=== PATIENT | male | born 1945 | race Caucasian/White ===

== ENCOUNTER 2017-04-28 13:01 | Emergency (ER) | payer MEDICARE ==
[~2017-04-28] VITALS: Ht 177.8 cm; Wt 85.0 kg
[2017-04-28] MEDS ORDERED: PLAVIX75 MG PO (13:49)
[2017-04-28] MEDS ORDERED: ASPIRINCHW 81MG PO (13:49)
[2017-04-28] MEDS ORDERED: NEURONTIN300 MG PO (13:50)
[2017-04-28] MEDS ORDERED: MIRALAX3350 NF PO ×2 (13:50→13:53)
[2017-04-28] MEDS ORDERED: RANITIDINE150 M1 PO (13:50)
[2017-04-28] MEDS ORDERED: TAMSULOSIN0.4 MG PO (13:51)
[2017-04-28] MEDS ORDERED: CRESTOR20 MG PO (13:51)
[2017-04-28] MEDS ORDERED: METOPROL TAR25 MG PO (13:52)
[2017-04-28] MEDS ORDERED: LEXAPRO10 MG PO (13:53)
[2017-04-28] MEDS ORDERED: INTEGRA PO (13:53)
[2017-04-28] MEDS ORDERED: SENNA8.6 MG PO (13:54)
[2017-04-28] MEDS ORDERED: INSPRA25 MG PO (13:54)
[2017-04-28] MEDS ORDERED: PROBIOTI3 (13:54)
[2017-04-28] MEDS ORDERED: ZYRTEC10 MG PO (13:55)
[2017-04-28] MEDS ORDERED: COLCHICINE0.6 M2 (13:55)
[2017-04-28] MEDS ORDERED: ATIVAN1 M1 PO (13:56)
[2017-04-28] MEDS ORDERED: NITROGLYCER0.4 MG/HR TD (13:56)
[2017-04-28 14:08] LABS: HEMATOCRIT 34.2 % (39.0-50.0); HEMOGLOBIN 11.3 g/dl (14.0-18.0); IMMATURE GRANULOCYTES 0.3 % (0.0-1.0); MEAN CELL VOLUME 98.8 fL CALC (80.0-100.0); MEAN CORPUSCULAR HGB 32.7 pG CALC (26.0-32.0); NEUT# 2.8 thou/uL (1.82-7.42); RED BLOOD COUNT 3.46 mill/uL (4.70-6.10); RED CELL DISTRI WIDTH 12.8 % (11.5-15.5)
[2017-04-28 14:51] LABS: ALBUMIN 3.9 g/dL (3.2-5.0); ALKALINE PHOSPHATASE 44 u/l (38-126); ANION GAP 16 (6-22 (CALC)); BILIRUBIN, TOTAL 0.7 mg/dL (0.0-1.4); BUN 25 mg/dL (8-23); BUN/CREATININE RATIO 12 (12-20 (CALC)); CALCIUM 9.7 mg/dL (8.4-10.2); CARBON DIOXIDE 27 mmol/l (22-30); CHLORIDE 103 mmol/l (95-108); GFR 33 ML/MIN (>=60 (CALC)); GFR FOR AFR.AMER. 40 ML/MIN (>=60 (CALC)); GLUCOSE 102 mg/dL (82-115); LIPASE 59 u/l (23-300); POTASSIUM 4.3 mmol/l (3.5-5.1); SGOT/AST 37 u/l (19-48); SGPT/ALT 30 u/l (11-66); SODIUM 142 mmol/l (137-146); TOTAL PROTEIN 6.3 g/dL (6.3-8.2)
[2017-04-28 15:06] LABS: URINE BILIRUBIN - DIPSTICK NEGATIVE (NEGATIVE); URINE BLOOD DIPSTICK NEGATIVE (NEGATIVE); URINE COLOR YELLOW; URINE GLUCOSE - DIPSTICK NEGATIVE (NEGATIVE); URINE KETONE NEGATIVE (NEGATIVE); URINE NITRITE - DIPSTICK NEGATIVE (Negative); URINE PROTEIN - DIPSTICK NEGATIVE (NEG-TRACE); URINE SPECIFIC GRAVITY 1.015; URINE UROBILINOGEN - DIPSTICK 0.2 E.U./dL (0.2)
[2017-04-28 15:16] LABS: URINE CLARITY CLOUDY; URINE LEUK ESTERASE MODERATE (NEGATIVE)
[2017-04-28 15:31] LABS: URINE BACTERIA RARE hpf; URINE SQUAMOUS EPITHELIAL CELL FEW EPI/hpf (0-FEW); URINE WBC 20-50 WBC/hpf (0-5)
[2017-04-28 15:50] VITALS: BP 102/59
== END 2017-04-28 15:50 | disposition home or self-care (01) ==
LOC: ED 13:01
PROVIDERS: Emergency Medicine
DX: K59.00 Constipation, unspecified (principal); R10.13 Epigastric pain; I10 Essential (primary) hypertension; R11.0 Nausea

== ENCOUNTER 2021-06-15 15:49 | Observation (INO) | payer MEDICARE ==
[~2021-06-15] VITALS: Ht 177.8 cm; Wt 90.0 kg
[~2021-06-15 15:49] MED LIST: ASPIRINCHW 81MG PO; ATIVAN1 M1 PO; COLCHICINE0.6 M2; CRESTOR20 MG PO; INSPRA25 MG PO; INTEGRA PO; LEXAPRO10 MG PO; METOPROLOL100 M1 PO; MIRALAX3350 NF PO; NEURONTIN300 MG PO; NITROGLYCER0.4 MG/HR TD; PLAVIX75 MG PO; PROBIOTI3; RANITIDINE150 M1 PO; RANOLAZINE ER1000 MG PO; SENNA8.6 MG PO; TAMSULOSIN0.4 MG PO; ZYRTEC10 MG PO
--- NOTE | 2021-06-15 15:50 | NUR ---
PT TO ED ROOM 8 VIA WHEELCHAIR FOR TRIAGE.
--- NOTE | 2021-06-15 16:13 | NUR ---
STROKE ALERT CALLED, PT TO CT VIA STRETCHER.
--- NOTE | 2021-06-15 16:17 | NUR ---
PT ARRIVES IN CT, SPEAKING WITH ASHLEY SHEPHERD VIA VIDEO. PT ALERT AND ABLE TO FOLLOW COMMANDS. PT REMAINS JUMPY WITH ANY STIMULI.
--- NOTE | 2021-06-15 16:22 | NUR ---
CT OF THE HEAD PERFORMED, NO CTA INDICATED. PT TAKEN BACK TO ED VIA STRETCHER IN STABLE CONDITION.
[2021-06-15 16:26] LABS: HEMOGLOBIN 13.1 g/dl (14.0-18.0); IMMATURE GRANULOCYTES 0.2 % (0.0-5.0); MEAN CELL VOLUME 98.3 fL CALC (80.0-100.0); MEAN CORPUSCULAR HGB 32.2 pG CALC (26.0-32.0); MEAN CORPUSCULAR HGB CONC 32.8 g/dL CAL (32.0-36.0); NEUT# 3.92 thou/uL (1.82-7.42); RED BLOOD COUNT 4.07 mill/uL (4.70-6.10); RED CELL DISTRI WIDTH 13.3 % (11.5-15.5)
--- NOTE | 2021-06-15 16:30 | NUR ---
PT BACK FROM RADIOLOGY IN STABLE CONDITION. PT MORE ALERT AND TALKATIVE AT THIS TIME. PTS [id number] PRESENT. WILL CONTINUE TO MONITOR.
[2021-06-15 16:37] LABS: ALBUMIN 3.6 g/dL (3.2-5.0); ALKALINE PHOSPHATASE 44 u/l (38-126); ANION GAP 13 (6-22 (CALC)); BILIRUBIN, TOTAL 0.7 mg/dL (0.0-1.4); BUN 23 mg/dL (8-23); BUN/CREATININE RATIO 13 (12-20 (CALC)); CARBON DIOXIDE 23 mmol/l (22-30); CHLORIDE 104 mmol/l (95-108); CREATININE 1.8 mg/dL (0.7-1.3); GFR 37 ML/MIN (>=60 (CALC)); GFR FOR AFR.AMER. 45 ML/MIN (>=60 (CALC)); POTASSIUM 4.2 mmol/l (3.5-5.1); SGOT/AST 27 u/l (19-48); SODIUM 135 mmol/l (137-146); TOTAL PROTEIN 6.3 g/dL (6.3-8.2)
--- NOTE | 2021-06-15 17:00 | NUR ---
SISTER IN LAW STATES [place] IN [place] FEW [place] TO LIVE WITH HER AND WANT AD RECEIVER BROTHER. WAS STARTED ON [place] ON 06/11/21, NOTED PT HAS TWO BOTTLES OF THIS MEDICINE FILLED AT TWO DIFFERENT PHARMACIES ON THE SAME DAY. FAMILY UNSURE IF PT IS TAKING BOTH. FAMILY ALSO STATES PT WAS A DIALYSIS PT AT ONE POINT AFTER HIS MX HEART SURGERIES
--- NOTE | 2021-06-15 17:07 | NUR ---
PT HYPOTENSIVE, FAMILY AT THE BEDSIDE, DR GUZMAN NOTIFIED. PT REMAINS STABLE.
[2021-06-15 17:35] LABS: PROTHROMBIN TIME 10.3 SECONDS (9.0-12.5)
--- NOTE | 2021-06-15 18:10 | NUR ---
PT'S BP IMPROVED, PT TALKATIVE, MAKING SENSE, STATES HE TOOK "TWO" NITRO BEFORE COMING TO HOSPITAL. PT'S SMILE NOTED TO BE SYMETRICAL. PT EXPRESSES THANKS FOR CARE GIVEN. PT STABLE WITH FAMILY AT THE BEDSIDE.
--- NOTE | 2021-06-15 19:10 | NUR ---
PT AND FAMILY AWARE OF PLAN FOR PT TO BE ADMITTED TO MED/SURG ROOM 278. PT STABLE AT THIS TIME.
[2021-06-15 19:34] LABS: C-REACTIVE PROTEIN < 0.5 mg/dL (0-0.9); MAGNESIUM 2.1 mg/dL (1.6-2.3)
[2021-06-15] MEDS ORDERED: FAMOTIDINE20 M1 PO (19:40)
[2021-06-15] MEDS ORDERED: PROTONIX40 M2 PO (19:41)
[2021-06-15] MEDS ORDERED: LAMOTRIGINE25 M1 PO (19:42)
[2021-06-15] MEDS ORDERED: MEMANTINE HYDROC5 MG PO (19:42)
[2021-06-15] MEDS ORDERED: TAMSULOSIN HCL0.4 MG PO (19:43)
[2021-06-15] MEDS ORDERED: AMOXICILLIN500 MG PO (19:44)
[2021-06-15] MEDS ORDERED: EZETIMIBE10 MG PO (19:45)
[2021-06-15] MEDS ORDERED: PERCOCET 5/321 COMBO PO (19:46)
--- NOTE | 2021-06-15 20:05 | NUR ---
CALL PLACED TO MED/SURG TO GIVE SBAR-NO ANSWER
--- NOTE | 2021-06-15 21:18 | NUR ---
SBAR REPORT GIVEN TO [facility] MED/SURG
--- NOTE | 2021-06-15 21:25 | NUR ---
PT TAKEN BY WHEELCHAIR TO MED/SURG IN STABLE CONDITION. PT WITH TELE IN PLACE. BELONGINGS AND PAPERWORK HANDED OFF TO STAFF.
[2021-06-15 21:34] VITALS: BP 126/61
--- NOTE | 2021-06-15 21:34 | NUR ---
PATIENT ADMITTED TO [facility] TO ROOM 278 VIA WC. ALERT WITH CONFUSION. PLEASANT. ABLE TO MAKE NEEDS KNOWN. ASSESSMENT COMPLETE. DENIES ANY PAIN. NO SIGNS OF DISTRESS. PATIENT DID VOICE BEING FORGETFUL. PATIENT ORIENTED TO ROOM, CALL LIGHT AND SURROUNDINGS. INSTRUCTED PATIENT TO UTILIZE CALL LIGHT TO ASK FOR ASSISTANCE. FRESH WATER AT BEDSIDE. BED IN LOW POSITION. CALL LIGHT AND BELONGINGS IN PATIENT REACH.
[2021-06-16] VITALS: BP 91/57
--- NOTE | 2021-06-16 00:30 | NUR ---
PATIENT RESTING IN BED. NO COMPLAINTS VOICED AT THIS TIME. CALL LIGHT AND BELONGINGS REMAIN IN REACH.
--- NOTE | 2021-06-16 03:40 | NUR ---
LAYING IN BED ON HIS LEFT SIDE. NO COMPLAINTS OF PAIN OR DISCOMFORT VOICED. SCARES EASILY WHEN SOMEONE ENTERS ROOM EVEN WHEN KNOCKING FIRST. PATIENT PLEASANT. CALL LIGHT AND BELONGINGS REMAIN IN REACH.
[2021-06-16 04:00] VITALS: BP 111/55
[2021-06-16 06:01] LABS: HEMATOCRIT 38.2 % (39.0-50.0); HEMOGLOBIN 12.5 g/dl (14.0-18.0); MEAN CELL VOLUME 98.7 fL CALC (80.0-100.0); MEAN CORPUSCULAR HGB 32.3 pG CALC (26.0-32.0); MEAN CORPUSCULAR HGB CONC 32.7 g/dL CAL (32.0-36.0); RED BLOOD COUNT 3.87 mill/uL (4.70-6.10); RED CELL DISTRI WIDTH 13.4 % (11.5-15.5)
[2021-06-16 06:21] LABS: CREATININE 1.7 mg/dL (0.7-1.3); MAGNESIUM 2.1 mg/dL (1.6-2.3)
[2021-06-16 06:24] LABS: POTASSIUM 4.2 mmol/l (3.5-5.1)
[2021-06-16 07:20] VITALS: BP 132/66
--- NOTE | 2021-06-16 07:20 | NUR ---
PT SITTING ON THE BED. A&O X3. SOMEWHAT FORGETFUL. PT DENIES ANY PAIN. CLEAR BREATH SOUNDS UPON AUSCULTATION. ACTIVE BOWEL SOUNDS X4 QUADRANTS. IV HEALTHY AND PATENT. FILENET ADMIN IN PLACE. NO OTHER NEEDS AT THIS TIME. CALL LIGHT WITHIN REACH.
--- NOTE | 2021-06-16 09:28 | NUR ---
PER [place] IN [place], PT ALLOWED TO HAVE BREAKFAST IF PERMITTED; NUCLEAR MED DOSE NOT AVAILABLE AT THIS TIME; PT TO HAVE SCAN COMPLETED AT OR AFTER 2PM. PT REQUIRED TO BE NPO 4-6 HOURS PRIOR TO SCAN; NO PAIN MEDICATION ALSO FOR 4-6 HOURS PRIOR TO SCAN.
[2021-06-16 10:45] VITALS: BP 122/64
--- NOTE | 2021-06-16 10:56 | NUR ---
PHYSICIAN AT BEDSIDE.
[2021-06-16] MEDS ORDERED: EXELON4.6 MG/24 PC (11:46)
[2021-06-16] MEDS ORDERED: HYDROXYZINE HYD25 MG PO (11:48)
[2021-06-16] MEDS ORDERED: TADALAFIL2.5 MG PO (11:48)
[2021-06-16] MEDS ORDERED: METOPROLOL100 M1 PO (11:49)
[2021-06-16] MEDS ORDERED: RANOLAZINE ER500 MG PO (11:49)
--- NOTE | 2021-06-16 11:57 | NUR ---
The orders for assessment were received by this BUSINESS PROCESS COORDINATOR today. The case was discussed with the attending nurse who reports no overt deficits for the patient for speech or swallow function. Medical record was checked which reports: chest pain, AKD, generalized weakness, CXR 06-15-21 per MD reports lungs clear, HX CABG, right HIP ORIF, CKD, HTN, BPH, CAD, hyperlipidemia, chronic pain, GERD, IBS. CT brain 06-15-21 per MD reports of no acute intracranial abnormality and marked cerebral atrophy. Patient seen 1105 am to 1125 am. He was cleared for visit by attending nurse at onset and result d/w her as well. The patient was alert in the bed and verbal throughout with eyes open. The patient was on room air. There was adequate visual tracking to a moving ADL object. There was equal hand grasp bilaterally. The patient has dentition. There was fair lingual, labial, mandibular ROM on command. There was no overt oral or facial asymmetry. Phonation was adequate as was speech intelligibility. Patient knows he is at a hospital in [place], states his name and date of as well. He did not know the day of week. He was able to describe ADL object, color, and function. He had eye glasses in place, no hearing aids in place. He was able to state the year. No overt anomia. He denies having cough and choke with meals. He denies having odynophagia with meals. He denies having globus sensation and denies having trouble swallowing pills. He denies having mastication deficits and does not feel that foods are sticking in his throat or chest. The patient followed all single stage auditory based commands. He had dry oral mucosa. Attending nurse reports patient is receiving a regular consistecny diet. He was orally defensive to gag reflex testing. BUSINESS PROCESS COORDINATOR explained scope of practice, purpose of the visit and provided positive reinforcement and verbal encouragement. There was dry cough and throat clear on cue. He denies having throat clear with meals. He had adequate saliva swallow strength and timeliness on command. The patient had no overt congestion. He was given regular solids and thin liquid with straw this visit. There was adequate oral anticipation, adequate labial seal on straw. No oral pooling and no anterior oral loss. There was adequate mastication for cracker. There was fair swallow strength and timeliness perceived for foods and liquids as per palpable assessment of the areas of the mandible, hyoid bone, and thyroid cartilage. No cough, no choke, no wet voice, no throat clearing, no increased work of breathing, his color remained good, no congestion, no clinical signs of aspiration noted. No overt dysphagia or aspiration symptoms with this visit. No overt distress during this visit. He had 1-2 repeat swallow per bolus spontaneously. BUSINESS PROCESS COORDINATOR explained safe feeding precautions and aspiration precautions to the patient. Would suggest continue with regular foods and thin liquid as tolerated. The following measures may help reduce but not completely eliminate his aspiration risk. Slow rate of intake, small bites and sips, maintain good oral hygiene, intermittent supervision with meals, meds PO per MD orders as tolerated, alt foods and liquids, check for oral pooling, dry saliva swallows between bites and sips, seat as close to 90 degree angle during meal and 60 min after meal. Hold oral feeding for worsening AMS, clinical signs of aspiration, and/or worsening respiratory status. Monitor temperature, lung, diet, and weight status. PO intake only when awake and alert. He would benefit from BUSINESS PROCESS COORDINATOR follow up to ensure PO intake safety and for additional cognitive linguistic assessment.
--- NOTE | 2021-06-16 13:53 | NUR ---
NEURO CONSULT IN PROGRESS BY Ruby PABON RN
--- NOTE | 2021-06-16 14:24 | NUR ---
PT SITTING IN BED. AWAITING CAROTID RESULTS PRIOR TO D/C. PT UPDATED ON POC. NO OTHER NEEDS AT THIS TIME. CALL LIGHT WITHIN REACH.
[2021-06-16 16:14] LABS: URINE BILIRUBIN - DIPSTICK NEGATIVE (NEGATIVE); URINE BLOOD DIPSTICK NEGATIVE (NEGATIVE); URINE COLOR YELLOW; URINE GLUCOSE - DIPSTICK NEGATIVE (NEGATIVE); URINE KETONE NEGATIVE (NEGATIVE); URINE LEUK ESTERASE NEGATIVE (NEGATIVE); URINE PH 7.5 (4.5-8.0); URINE PROTEIN - DIPSTICK NEGATIVE (NEG-TRACE); URINE SPECIFIC GRAVITY 1.015; URINE UROBILINOGEN - DIPSTICK 0.2 E.U./dL (0.2)
[2021-06-16 16:16] LABS: URINE NITRITE - DIPSTICK NEGATIVE (Negative)
--- NOTE | 2021-06-16 16:54 | NUR ---
Discharge instructions given. Patient verbalizes understanding of same. Discharged in stable condition via Wheelchair to Home with staff. All belongings sent with pt.
== END 2021-06-16 16:54 | disposition home or self-care (01) ==
LOC: ED 15:49 → ED-I 18:36 → ED 18:57 → MS2 18:58
PROVIDERS: Family Medicine; Nurse Practitioner; ADMIT Internal Medicine; ATTEND Internal Medicine
DX: R53.1 Weakness (principal); R07.9 Chest pain, unspecified; N17.9 Acute kidney failure, unspecified; I95.9 Hypotension, unspecified; I12.9 Hypertensive chronic kidney disease with stage 1 through stage 4 chronic kidney disease, or unspecified chronic kidney disease; N18.9 Chronic kidney disease, unspecified; I25.10 Atherosclerotic heart disease of native coronary artery without angina pectoris; E78.5 Hyperlipidemia, unspecified; G89.4 Chronic pain syndrome; K21.9 Gastro-esophageal reflux disease without esophagitis; N40.0 Benign prostatic hyperplasia without lower urinary tract symptoms; K58.9 Irritable bowel syndrome, unspecified; I25.2 Old myocardial infarction; Z95.1 Presence of aortocoronary bypass graft; Z95.810 Presence of automatic (implantable) cardiac defibrillator; Z95.5 Presence of coronary angioplasty implant and graft; Z79.02 Long term (current) use of antithrombotics/antiplatelets; Z79.82 Long term (current) use of aspirin; Z20.822 Contact with and (suspected) exposure to COVID-19

== ENCOUNTER 2021-07-01 16:59 | Emergency (ER) | payer MEDICARE ==
[~2021-07-01] VITALS: Ht 177.8 cm; Wt 90.0 kg
[2021-07-01] VITALS (20 sets, daily range): BP systolic 103–144; BP diastolic 46–78
[~2021-07-01 16:59] MED LIST changes: +AMOXICILLIN500 MG PO; +EXELON4.6 MG/24 PC; +EZETIMIBE10 MG PO; +FAMOTIDINE20 M1 PO; +HYDROXYZINE HYD25 MG PO; +LAMOTRIGINE25 M1 PO; +MEMANTINE HYDROC5 MG PO; +PERCOCET 5/321 COMBO PO; +PROTONIX40 M2 PO; +RANOLAZINE ER500 MG PO; +TADALAFIL2.5 MG PO; +TAMSULOSIN HCL0.4 MG PO
[2021-07-01 17:57] LABS: HEMATOCRIT 36.6 % (39.0-50.0); HEMOGLOBIN 12.1 g/dl (14.0-18.0); IMMATURE GRANULOCYTES 0.3 % (0.0-5.0); MEAN CELL VOLUME 98.1 fL CALC (80.0-100.0); MEAN CORPUSCULAR HGB 32.4 pG CALC (26.0-32.0); MEAN CORPUSCULAR HGB CONC 33.1 g/dL CAL (32.0-36.0); NEUT# 6.27 thou/uL (1.82-7.42); RED BLOOD COUNT 3.73 mill/uL (4.70-6.10); RED CELL DISTRI WIDTH 13.4 % (11.5-15.5)
[2021-07-01 18:12] LABS: ALBUMIN 3.6 g/dL (3.2-5.0); BILIRUBIN, TOTAL 0.8 mg/dL (0.0-1.4); CREATININE 1.6 mg/dL (0.7-1.3); POTASSIUM 3.7 mmol/l (3.5-5.1); TOTAL PROTEIN 6.4 g/dL (6.3-8.2)
[2021-07-01 18:24] LABS: URINE BILIRUBIN - DIPSTICK NEGATIVE (NEGATIVE); URINE BLOOD DIPSTICK NEGATIVE (NEGATIVE); URINE GLUCOSE - DIPSTICK NEGATIVE (NEGATIVE); URINE KETONE NEGATIVE (NEGATIVE); URINE LEUK ESTERASE TRACE (NEGATIVE); URINE PH 8.5 (4.5-8.0); URINE PROTEIN - DIPSTICK 30 mg/dL (NEG-TRACE); URINE UROBILINOGEN - DIPSTICK 0.2 E.U./dL (0.2)
[2021-07-01 18:27] LABS: URINE COLOR AMBER; URINE NITRITE - DIPSTICK NEGATIVE (Negative)
[2021-07-01 18:28] LABS: URINE RBC 0-2 RBC/hpf (0-5); URINE WBC 0-2 WBC/hpf (0-5)
[2021-07-01 19:09] LABS: CPK 67 u/l (52-200); D-DIMER 0.89 mg/L (0.19-0.60); MAGNESIUM 2.1 mg/dL (1.6-2.3)
[2021-07-01 19:13] LABS: ACT PARTIAL THROMBO TIME 27.9 SECONDS (20.0-32.5); PROTHROMBIN TIME 10.7 SECONDS (9.0-12.5)
[2021-07-01 19:22] LABS: MYOGLOBIN 69 ng/mL (0 - 121)
[2021-07-01] MEDS ORDERED: PEPCID40 MG PO (21:57)
== END 2021-07-01 22:35 | disposition home or self-care (01) ==
LOC: ED 16:59
PROVIDERS: Family Medicine
DX: K29.70 Gastritis, unspecified, without bleeding (principal); I10 Essential (primary) hypertension; I25.2 Old myocardial infarction; Z95.1 Presence of aortocoronary bypass graft; Z95.5 Presence of coronary angioplasty implant and graft; Z20.822 Contact with and (suspected) exposure to COVID-19
CPT/HCPCS: Q9967

== ENCOUNTER 2021-12-20 12:58 | Emergency (ER) | payer MEDICARE ==
[~2021-12-20] VITALS: Ht 182.9 cm; Wt 88.4 kg
[~2021-12-20 12:58] MED LIST changes: +ADLT ASA LOW81 MG PO; +B-121000 MC1 PO; +CO-Q 101 CAP PO; +EXELON4.6 MG/24 TD; +LEXAPRO20 MG PO; +MEMANTINE HYDRO10 MG PO; +METAMUCIL28 % PO; +METOPROLOL SUCC50 MG PO; +MIRALAX17 GM/SCOO PO; +PEPCID40 MG PO; +PRAVASTATIN SOD20 MG PO; +SENNA-TABS8.6 MG PO; +TRAZODONE50 MG PO; +VITAMIN D325 MCG PO
[2021-12-20 13:12] VITALS: BP 136/103
[2021-12-20] MEDS ORDERED: ZOFRAN4 MG/TAB PO (13:21)
[2021-12-20 13:31] VITALS: BP 136/103
== END 2021-12-20 13:31 | disposition left against medical advice (07) ==
LOC: ED 12:58
DX: R11.0 Nausea (principal); I10 Essential (primary) hypertension; I25.2 Old myocardial infarction; Z95.1 Presence of aortocoronary bypass graft; Z95.5 Presence of coronary angioplasty implant and graft; Z91.19 Patient's noncompliance with other medical treatment and regimen

== ENCOUNTER 2021-12-23 18:12 | Emergency (ER) | payer MEDICARE ==
[~2021-12-23] VITALS: Ht 182.9 cm; Wt 84.0 kg
[2021-12-23] VITALS (19 sets, daily range): BP systolic 106–145; BP diastolic 52–69
[~2021-12-23 18:12] MED LIST changes: +ZOFRAN4 MG/TAB PO
[2021-12-23 18:48] LABS: HEMOGLOBIN 14.6 g/dl (14.0-18.0); IMMATURE GRANULOCYTES 0.2 % (0.0-5.0); MEAN CORPUSCULAR HGB 31.8 pG CALC (26.0-32.0); MEAN CORPUSCULAR HGB CONC 33.5 g/dL CAL (32.0-36.0); NEUT# 4.9 thou/uL (1.82-7.42); RED BLOOD COUNT 4.59 mill/uL (4.70-6.10); RED CELL DISTRI WIDTH 12.8 % (11.5-15.5)
[2021-12-23 18:53] LABS: HEMATOCRIT 43.6 % (39.0-50.0)
[2021-12-23 19:04] LABS: ALBUMIN 4.4 g/dL (3.2-5.0); BILIRUBIN, TOTAL 0.8 mg/dL (0.0-1.4); CREATININE 1.8 mg/dL (0.7-1.3); MAGNESIUM 2.1 mg/dL (1.6-2.3); POTASSIUM 4.3 mmol/l (3.5-5.1); TOTAL PROTEIN 7.4 g/dL (6.3-8.2)
[2021-12-23 21:16] LABS: URINE BLOOD DIPSTICK NEGATIVE (NEGATIVE); URINE GLUCOSE - DIPSTICK NEGATIVE (NEGATIVE); URINE KETONE NEGATIVE (NEGATIVE); URINE LEUK ESTERASE TRACE (NEGATIVE); URINE PH 6.5 (4.5-8.0); URINE PROTEIN - DIPSTICK NEGATIVE (NEG-TRACE); URINE SPECIFIC GRAVITY >=1.030; URINE UROBILINOGEN - DIPSTICK 0.2 E.U./dL (0.2)
[2021-12-23 21:17] LABS: URINE BILIRUBIN - DIPSTICK SMALL (NEGATIVE); URINE NITRITE - DIPSTICK NEGATIVE (Negative)
[2021-12-23 21:18] LABS: URINE COLOR DK. YELLOW
[2021-12-23] MEDS ORDERED: ONDANSETRON4 MG PO (22:16)
== END 2021-12-23 22:40 | disposition home or self-care (01) ==
LOC: ED 18:12
PROVIDERS: Internal Medicine
DX: R11.0 Nausea (principal); F41.9 Anxiety disorder, unspecified; F03.90 Unspecified dementia, unspecified severity, without behavioral disturbance, psychotic disturbance, mood disturbance, and anxiety; I10 Essential (primary) hypertension; Z95.1 Presence of aortocoronary bypass graft; Z95.5 Presence of coronary angioplasty implant and graft; I25.2 Old myocardial infarction

== ENCOUNTER → 2022-06-07 | Emergency (ER) | payer MEDICARE ==
[~2022-06-07] VITALS: Ht 182.9 cm; Wt 81.8 kg
[~2022-06-07] MED LIST changes: +CARAFATE1 GM PO; +NITROSTAT0.3 MG SL; +ONDANSETRON4 MG PO; +[UNRECOGNIZED DRUG - OTHER] PO
[2022-06-07 16:50] LABS: BASO% 0.3 % (0-3); EOS% 1.9 % (0-8); HEMATOCRIT 44.2 % (39.0-50.0); HEMOGLOBIN 14.2 g/dl (14.0-18.0); IMMATURE GRANULOCYTES 0.1 % (0.0-5.0); LYMPH% 11.6 % (15-41); MEAN CELL VOLUME 96.7 fL CALC (80.0-100.0); MEAN CORPUSCULAR HGB 31.1 pG CALC (26.0-32.0); MEAN CORPUSCULAR HGB CONC 32.1 g/dL CAL (32.0-36.0); MONO% 7.2 % (2-13); NEUT# 5.29 thou/uL (1.82-7.42); NEUT% 78.9 % (42-76); RED BLOOD COUNT 4.57 mill/uL (4.70-6.10); RED CELL DISTRI WIDTH 12.7 % (11.5-15.5)
[2022-06-07 17:20] LABS: PROTHROMBIN TIME 10.2 SECONDS (9.0-12.5)
[2022-06-07 17:23] LABS: ALBUMIN 3.9 g/dL (3.2-5.0); BILIRUBIN, TOTAL 0.4 mg/dL (0.2-1.3); CREATININE 1.5 mg/dL (0.7-1.3); POTASSIUM 3.9 mmol/l (3.5-5.1); TOTAL PROTEIN 6.6 g/dL (6.3-8.2)
[2022-06-07 19:16] VITALS: BP 162/75
[2022-06-07 19:31] VITALS: BP 168/78
== END | disposition short-term general hospital (02) ==
LOC: ED 15:58
PROVIDERS: Nurse Practitioner
DX: I21.4 Non-ST elevation (NSTEMI) myocardial infarction (principal); I12.9 Hypertensive chronic kidney disease with stage 1 through stage 4 chronic kidney disease, or unspecified chronic kidney disease; N18.9 Chronic kidney disease, unspecified; I25.10 Atherosclerotic heart disease of native coronary artery without angina pectoris; F03.90 Unspecified dementia, unspecified severity, without behavioral disturbance, psychotic disturbance, mood disturbance, and anxiety; I25.2 Old myocardial infarction; Z95.1 Presence of aortocoronary bypass graft; Z95.5 Presence of coronary angioplasty implant and graft
CPT/HCPCS: J1644

== ENCOUNTER 2022-07-01 07:48 | Day surgery (SDC) | payer MEDICARE ==
[~2022-07-01] VITALS: Ht 182.9 cm; Wt 88.5 kg
[2022-07-01] MEDS ORDERED: PERCOCET 5/321 COMBO PO (10:01)
[2022-07-01 12:02] VITALS: BP 116/63
== END 2022-07-01 12:35 | disposition home or self-care (01) ==
LOC: ORM 07:48
PROVIDERS: ATTEND Surgery
PROC: 0FT44ZZ Resection of Gallbladder, Percutaneous Endoscopic Approach (ICD-10-PCS; principal; 2022-07-01)
DX: K80.10 Calculus of gallbladder with chronic cholecystitis without obstruction (principal); I25.10 Atherosclerotic heart disease of native coronary artery without angina pectoris; E78.5 Hyperlipidemia, unspecified; I25.2 Old myocardial infarction; Z95.1 Presence of aortocoronary bypass graft; Z95.5 Presence of coronary angioplasty implant and graft
CPT/HCPCS: J0131; J0690

== ENCOUNTER 2022-08-14 15:58 | Inpatient (IN) | payer MEDICARE ==
[~2022-08-14] VITALS: Ht 182.9 cm; Wt 90.0 kg
[2022-08-14 16:09] VITALS: BP 171/75
[2022-08-14] MEDS ORDERED: TRAZODONE50 MG PO (16:48)
[2022-08-14] MEDS ORDERED: TYLENOL500 MG PO (16:51)
[2022-08-14 17:36] VITALS: BP 142/92
[2022-08-14 17:58] LABS: BASO% 0.2 % (0-3); EOS% 2.7 % (0-8); HEMATOCRIT 44.3 % (39.0-50.0); HEMOGLOBIN 14.4 g/dl (14.0-18.0); IMMATURE GRANULOCYTES 0.2 % (0.0-5.0); LYMPH% 16.8 % (15-41); MEAN CELL VOLUME 97.1 fL CALC (80.0-100.0); MEAN CORPUSCULAR HGB 31.6 pG CALC (26.0-32.0); MEAN CORPUSCULAR HGB CONC 32.5 g/dL CAL (32.0-36.0); MONO% 12.8 % (2-13); NEUT# 3.74 thou/uL (1.82-7.42); NEUT% 67.3 % (42-76); RED BLOOD COUNT 4.56 mill/uL (4.70-6.10); RED CELL DISTRI WIDTH 13.9 % (11.5-15.5)
[2022-08-14 18:00] VITALS: BP 152/74
[2022-08-14 18:06] LABS: ALBUMIN 3.9 g/dL (3.2-5.0); CREATININE 1.6 mg/dL (0.7-1.3); POTASSIUM 4.4 mmol/l (3.5-5.1); TOTAL PROTEIN 6.4 g/dL (6.3-8.2)
[2022-08-14 18:08] LABS: BILIRUBIN, TOTAL 0.6 mg/dL (0.2-1.3)
[2022-08-14 19:00] VITALS: BP 170/72
[2022-08-14 19:13] VITALS: BP 170/72
[2022-08-14 23:38] VITALS: BP 105/55
[2022-08-15] VITALS (10 sets, daily range): BP systolic 105–132; BP diastolic 51–91
[2022-08-15 02:21] LABS: CHOLESTEROL HDL RATIO 6.8 (<4.4 (CALC)); MAGNESIUM 1.9 mg/dL (1.6-2.3)
[2022-08-15 06:12] LABS: URINE BILIRUBIN - DIPSTICK NEGATIVE (NEGATIVE); URINE BLOOD DIPSTICK NEGATIVE (NEGATIVE); URINE CLARITY SL CLOUDY; URINE COLOR YELLOW; URINE GLUCOSE - DIPSTICK NEGATIVE (NEGATIVE); URINE KETONE NEGATIVE (NEGATIVE); URINE LEUK ESTERASE TRACE (Negative); URINE NITRITE - DIPSTICK NEGATIVE (Negative); URINE PROTEIN - DIPSTICK NEGATIVE (NEG-TRACE); URINE UROBILINOGEN - DIPSTICK 0.2 E.U./dL (0.2)
[2022-08-15 06:12] LABS: BASO% 0.3 % (0-3); EOS% 2.8 % (0-8); HEMOGLOBIN 13.2 g/dl (14.0-18.0); IMMATURE GRANULOCYTES 0.3 % (0.0-5.0); LYMPH% 16.2 % (15-41); MEAN CELL VOLUME 96.5 fL CALC (80.0-100.0); MEAN CORPUSCULAR HGB 31.1 pG CALC (26.0-32.0); MEAN CORPUSCULAR HGB CONC 32.2 g/dL CAL (32.0-36.0); MONO% 10.9 % (2-13); NEUT# 5.41 thou/uL (1.82-7.42); NEUT% 69.5 % (42-76); RED BLOOD COUNT 4.25 mill/uL (4.70-6.10); RED CELL DISTRI WIDTH 13.8 % (11.5-15.5)
[2022-08-15 06:40] LABS: ALBUMIN 3.5 g/dL (3.2-5.0); BILIRUBIN, TOTAL 0.7 mg/dL (0.2-1.3); CREATININE 1.6 mg/dL (0.7-1.3); POTASSIUM 3.9 mmol/l (3.5-5.1)
== END 2022-08-15 10:46 | disposition short-term general hospital (02) | DRG 282 ==
LOC: ED 15:58 → ED-I 17:47 → ED 18:01 → MS2 18:02 → ICU 08-15 03:30 → MS2 08-15 03:30 → ICU 08-15 03:31
PROVIDERS: Family Medicine; ADMIT Internal Medicine; ATTEND Internal Medicine
DX: I21.4 Non-ST elevation (NSTEMI) myocardial infarction (principal); I25.10 Atherosclerotic heart disease of native coronary artery without angina pectoris; I12.9 Hypertensive chronic kidney disease with stage 1 through stage 4 chronic kidney disease, or unspecified chronic kidney disease; N18.9 Chronic kidney disease, unspecified; E78.5 Hyperlipidemia, unspecified; G89.4 Chronic pain syndrome; K21.9 Gastro-esophageal reflux disease without esophagitis; R41.3 Other amnesia; I25.2 Old myocardial infarction; Z95.5 Presence of coronary angioplasty implant and graft; Z95.1 Presence of aortocoronary bypass graft; Z79.82 Long term (current) use of aspirin; Z95.810 Presence of automatic (implantable) cardiac defibrillator; Z20.822 Contact with and (suspected) exposure to COVID-19
CPT/HCPCS: G0378; J1644; J1650

== ENCOUNTER 2022-08-28 13:43 | Emergency (ER) | payer MEDICARE ==
[~2022-08-28] VITALS: Ht 182.9 cm; Wt 83.9 kg
[2022-08-28] VITALS (10 sets, daily range): BP systolic 121–143; BP diastolic 58–92
[~2022-08-28 13:43] MED LIST changes: +TYLENOL500 MG PO
[2022-08-28 14:23] LABS: BASO% 0.4 % (0-3); EOS% 4.3 % (0-8); IMMATURE GRANULOCYTES 0.2 % (0.0-5.0); LYMPH% 16.9 % (15-41); MEAN CORPUSCULAR HGB 31.7 pG CALC (26.0-32.0); MEAN CORPUSCULAR HGB CONC 33.3 g/dL CAL (32.0-36.0); MONO% 9.7 % (2-13); NEUT# 3.68 thou/uL (1.82-7.42); NEUT% 68.5 % (42-76); RED BLOOD COUNT 4.42 mill/uL (4.70-6.10)
[2022-08-28 14:29] LABS: ALBUMIN 4.2 g/dL (3.2-5.0); BILIRUBIN, TOTAL 0.7 mg/dL (0.2-1.3); CREATININE 1.5 mg/dL (0.7-1.3); POTASSIUM 3.8 mmol/l (3.5-5.1); TOTAL PROTEIN 6.9 g/dL (6.3-8.2)
[2022-08-28 16:48] LABS: URINE BILIRUBIN - DIPSTICK NEGATIVE (NEGATIVE); URINE BLOOD DIPSTICK NEGATIVE (NEGATIVE); URINE COLOR YELLOW; URINE GLUCOSE - DIPSTICK NEGATIVE (NEGATIVE); URINE KETONE NEGATIVE (NEGATIVE); URINE LEUK ESTERASE NEGATIVE (NEGATIVE); URINE PH 6.5 (4.5-8.0); URINE PROTEIN - DIPSTICK NEGATIVE (NEG-TRACE); URINE SPECIFIC GRAVITY 1.025; URINE UROBILINOGEN - DIPSTICK 0.2 E.U./dL (0.2)
[2022-08-28 16:51] LABS: URINE NITRITE - DIPSTICK NEGATIVE (Negative)
== END 2022-08-28 18:42 | disposition home or self-care (01) ==
LOC: ED 13:43
PROVIDERS: Family Medicine
DX: R11.0 Nausea (principal); I10 Essential (primary) hypertension; I25.2 Old myocardial infarction; Z95.1 Presence of aortocoronary bypass graft; Z95.5 Presence of coronary angioplasty implant and graft; Z20.822 Contact with and (suspected) exposure to COVID-19

== ENCOUNTER 2022-09-13 04:22 | Observation (INO) | payer MEDICARE ==
[~2022-09-13] VITALS: Ht 182.9 cm; Wt 86.6 kg
[2022-09-13] VITALS (36 sets, daily range): BP systolic 115–173; BP diastolic 48–106
[2022-09-13] MEDS ORDERED: AMLODIPINE BESYL5 MG PO (04:43)
[2022-09-13] MEDS ORDERED: LIPITOR80 M1 PO (04:44)
[2022-09-13] MEDS ORDERED: BRILINTA90 MG PO (04:45)
[2022-09-13] MEDS ORDERED: LINZESS72 MCG (04:46)
[2022-09-13] MEDS ORDERED: TAMSULOSIN0.4 MG PO (04:49)
[2022-09-13] MEDS ORDERED: RIVASTIGMINE T PO (04:49)
[2022-09-13 05:44] LABS: BASO% 0.3 % (0-3); EOS% 4.8 % (0-8); HEMATOCRIT 40.9 % (39.0-50.0); HEMOGLOBIN 13.3 g/dl (14.0-18.0); IMMATURE GRANULOCYTES 0.3 % (0.0-5.0); LYMPH% 16.5 % (15-41); MEAN CELL VOLUME 97.1 fL CALC (80.0-100.0); MEAN CORPUSCULAR HGB 31.6 pG CALC (26.0-32.0); MEAN CORPUSCULAR HGB CONC 32.5 g/dL CAL (32.0-36.0); MONO% 12.6 % (2-13); NEUT# 4.2 thou/uL (1.82-7.42); NEUT% 65.5 % (42-76); RED BLOOD COUNT 4.21 mill/uL (4.70-6.10); RED CELL DISTRI WIDTH 12.9 % (11.5-15.5)
[2022-09-13 05:56] LABS: BILIRUBIN, TOTAL 0.7 mg/dL (0.2-1.3); CREATININE 1.6 mg/dL (0.7-1.3); POTASSIUM 3.8 mmol/l (3.5-5.1); TOTAL PROTEIN 6.8 g/dL (6.3-8.2)
[2022-09-14 04:46] VITALS: BP 127/56
[2022-09-14 06:21] LABS: BASO% 0.1 % (0-3); EOS% 4.3 % (0-8); HEMATOCRIT 38.6 % (39.0-50.0); HEMOGLOBIN 12.5 g/dl (14.0-18.0); IMMATURE GRANULOCYTES 0.3 % (0.0-5.0); LYMPH% 16.3 % (15-41); MEAN CELL VOLUME 96.5 fL CALC (80.0-100.0); MEAN CORPUSCULAR HGB 31.3 pG CALC (26.0-32.0); MEAN CORPUSCULAR HGB CONC 32.4 g/dL CAL (32.0-36.0); MONO% 10.7 % (2-13); NEUT# 4.59 thou/uL (1.82-7.42); NEUT% 68.3 % (42-76)
[2022-09-14 06:36] LABS: ALBUMIN 3.5 g/dL (3.2-5.0); BILIRUBIN, TOTAL 0.5 mg/dL (0.2-1.3); CHOLESTEROL HDL RATIO 4.6 (<4.4 (CALC)); CREATININE 1.8 mg/dL (0.7-1.3); TOTAL PROTEIN 5.9 g/dL (6.3-8.2)
[2022-09-14 06:38] LABS: POTASSIUM 3.8 mmol/l (3.5-5.1)
[2022-09-14 07:24] VITALS: BP 124/50
[2022-09-14 11:18] VITALS: BP 107/54
== END 2022-09-14 13:22 ==
LOC: ED 04:22 → ED-I 04:55 → ED 04:55 → ED-I 06:30 → ED 06:50 → ICU 06:51 → MS2 06:51
PROVIDERS: Emergency Medicine; Nurse Practitioner Family; ADMIT Internal Medicine; ATTEND Internal Medicine
DX: R07.9 Chest pain, unspecified (principal); I12.9 Hypertensive chronic kidney disease with stage 1 through stage 4 chronic kidney disease, or unspecified chronic kidney disease; N18.9 Chronic kidney disease, unspecified; I25.10 Atherosclerotic heart disease of native coronary artery without angina pectoris; E78.5 Hyperlipidemia, unspecified; G89.4 Chronic pain syndrome; K21.9 Gastro-esophageal reflux disease without esophagitis; F41.9 Anxiety disorder, unspecified; I25.2 Old myocardial infarction; Z95.1 Presence of aortocoronary bypass graft; Z95.810 Presence of automatic (implantable) cardiac defibrillator; Z95.5 Presence of coronary angioplasty implant and graft; Z79.02 Long term (current) use of antithrombotics/antiplatelets; Z79.82 Long term (current) use of aspirin
CPT/HCPCS: J1650

== ENCOUNTER 2022-10-07 15:11 | Observation (INO) | payer MEDICARE ==
[2022-10-07] VITALS (23 sets, daily range): BP systolic 101–137; BP diastolic 42–74
[~2022-10-07] VITALS: Ht 182.9 cm; Wt 89.4 kg
[~2022-10-07 15:11] MED LIST changes: +AMLODIPINE BESYL5 MG PO; +BRILINTA90 MG PO; +LINZESS72 MCG; +LIPITOR80 M1 PO; +RIVASTIGMINE T PO
[2022-10-07 15:48] LABS: BASO% 0.3 % (0-3); EOS% 1.7 % (0-8); HEMATOCRIT 40.4 % (39.0-50.0); IMMATURE GRANULOCYTES 0.2 % (0.0-5.0); LYMPH% 8.8 % (15-41); MEAN CELL VOLUME 96.7 fL CALC (80.0-100.0); MEAN CORPUSCULAR HGB 31.1 pG CALC (26.0-32.0); MEAN CORPUSCULAR HGB CONC 32.2 g/dL CAL (32.0-36.0); MONO% 6.9 % (2-13); NEUT# 7.59 thou/uL (1.82-7.42); NEUT% 82.1 % (42-76); RED BLOOD COUNT 4.18 mill/uL (4.70-6.10); RED CELL DISTRI WIDTH 13.3 % (11.5-15.5)
[2022-10-07 15:58] LABS: ALBUMIN 4.1 g/dL (3.2-5.0); CREATININE 1.4 mg/dL (0.7-1.3); POTASSIUM 3.9 mmol/l (3.5-5.1); TOTAL PROTEIN 6.7 g/dL (6.3-8.2)
[2022-10-07 16:08] LABS: BILIRUBIN, TOTAL 1.1 mg/dL (0.2-1.3)
[2022-10-08 03:47] LABS: BASO% 0.4 % (0-3); EOS% 2.8 % (0-8); IMMATURE GRANULOCYTES 0.4 % (0.0-5.0); LYMPH% 17.3 % (15-41); MEAN CELL VOLUME 96.6 fL CALC (80.0-100.0); MEAN CORPUSCULAR HGB 31.3 pG CALC (26.0-32.0); MEAN CORPUSCULAR HGB CONC 32.4 g/dL CAL (32.0-36.0); MONO% 11.3 % (2-13); NEUT# 3.62 thou/uL (1.82-7.42); NEUT% 67.8 % (42-76); RED BLOOD COUNT 3.83 mill/uL (4.70-6.10); RED CELL DISTRI WIDTH 13.3 % (11.5-15.5)
[2022-10-08 03:58] LABS: ALBUMIN 3.3 g/dL (3.2-5.0); ALKALINE PHOSPHATASE 35 u/l (38-126); ANION GAP 11 (6-22 (CALC)); BUN 21 mg/dL (8-23); BUN/CREATININE RATIO 16 (12-20 (CALC)); CARBON DIOXIDE 23 mmol/l (22-30); CHLORIDE 109 mmol/l (95-108); CREATININE 1.3 mg/dL (0.7-1.3); GFR FOR AFR.AMER. > 60 ML/MIN (>=60 (CALC)); GFR OTHER RACES 54 ML/MIN (>=60 (CALC)); SGOT/AST 36 u/l (19-48); SODIUM 138 mmol/l (137-146)
[2022-10-08 03:59] LABS: CHOLESTEROL HDL RATIO 3.8 (<4.4 (CALC))
[2022-10-08 04:03] LABS: TOTAL PROTEIN 5.3 g/dL (6.3-8.2)
[2022-10-08 04:09] VITALS: BP 96/41
[2022-10-08 04:22] VITALS: BP 96/41
[2022-10-08 05:05] VITALS: BP 114/61
[2022-10-08 07:00] VITALS: BP 110/53
[2022-10-08 10:58] VITALS: BP 107/59
== END 2022-10-08 11:14 ==
LOC: ED 15:11 → ED-I 16:40 → ED 18:57 → MS2 18:58
PROVIDERS: Family Medicine; Nurse Practitioner Family; ADMIT Internal Medicine; ATTEND Internal Medicine
DX: R07.9 Chest pain, unspecified (principal); F03.94 Unspecified dementia, unspecified severity, with anxiety; I12.9 Hypertensive chronic kidney disease with stage 1 through stage 4 chronic kidney disease, or unspecified chronic kidney disease; N18.9 Chronic kidney disease, unspecified; I25.10 Atherosclerotic heart disease of native coronary artery without angina pectoris; J44.9 Chronic obstructive pulmonary disease, unspecified; N40.0 Benign prostatic hyperplasia without lower urinary tract symptoms; E78.5 Hyperlipidemia, unspecified; G89.4 Chronic pain syndrome; K21.9 Gastro-esophageal reflux disease without esophagitis; K58.9 Irritable bowel syndrome, unspecified; I25.2 Old myocardial infarction; Z95.810 Presence of automatic (implantable) cardiac defibrillator; Z95.5 Presence of coronary angioplasty implant and graft; Z95.1 Presence of aortocoronary bypass graft
CPT/HCPCS: S0164

== ENCOUNTER 2022-10-13 07:15 | Emergency (ER) | payer MEDICARE ==
[~2022-10-13] VITALS: Ht 182.9 cm; Wt 88.8 kg
[2022-10-13] VITALS (11 sets, daily range): BP systolic 134–162; BP diastolic 62–87
== END 2022-10-13 14:21 | disposition home or self-care (01) ==
LOC: ED 07:15
DX: K59.00 Constipation, unspecified (principal); I10 Essential (primary) hypertension; I25.2 Old myocardial infarction; Z95.1 Presence of aortocoronary bypass graft; Z95.5 Presence of coronary angioplasty implant and graft; Z95.0 Presence of cardiac pacemaker

== ENCOUNTER 2022-10-15 07:18 | Emergency (ER) | payer MEDICARE ==
[~2022-10-15] VITALS: Ht 182.9 cm; Wt 160.0 kg
[2022-10-15] VITALS (9 sets, daily range): BP systolic 101–156; BP diastolic 50–85
[2022-10-15 08:48] LABS: BASO% 0.4 % (0-3); EOS% 2.9 % (0-8); HEMATOCRIT 40.2 % (39.0-50.0); IMMATURE GRANULOCYTES 0.2 % (0.0-5.0); LYMPH% 15.7 % (15-41); MEAN CELL VOLUME 96.9 fL CALC (80.0-100.0); MEAN CORPUSCULAR HGB 31.3 pG CALC (26.0-32.0); MEAN CORPUSCULAR HGB CONC 32.3 g/dL CAL (32.0-36.0); MONO% 10.7 % (2-13); NEUT# 3.39 thou/uL (1.82-7.42); NEUT% 70.1 % (42-76); RED BLOOD COUNT 4.15 mill/uL (4.70-6.10); RED CELL DISTRI WIDTH 13.4 % (11.5-15.5)
[2022-10-15 09:09] LABS: ALBUMIN 3.9 g/dL (3.2-5.0); CREATININE 1.4 mg/dL (0.7-1.3); POTASSIUM 3.6 mmol/l (3.5-5.1)
[2022-10-15 09:10] LABS: TOTAL PROTEIN 6.4 g/dL (6.3-8.2)
[2022-10-15] MEDS ORDERED: CITRATE OF MEGNESIA PO (13:00)
== END 2022-10-15 13:09 | disposition home or self-care (01) ==
LOC: ED 07:18
PROVIDERS: Family Medicine
DX: K59.00 Constipation, unspecified (principal); I10 Essential (primary) hypertension; I25.2 Old myocardial infarction; Z95.1 Presence of aortocoronary bypass graft; Z95.5 Presence of coronary angioplasty implant and graft; Z95.0 Presence of cardiac pacemaker
CPT/HCPCS: Q9967

== ENCOUNTER 2022-10-23 02:47 | Emergency (ER) | payer MEDICARE ==
[2022-10-23] VITALS (9 sets, daily range): BP systolic 123–168; BP diastolic 60–102
[~2022-10-23] VITALS: Ht 182.9 cm; Wt 87.0 kg
[~2022-10-23 02:47] MED LIST changes: +CITRATE OF MEGNESIA PO; +MIRALAX17 GM PO
[2022-10-23 03:21] LABS: EOS% 2.7 % (0-8); HEMATOCRIT 42.6 % (39.0-50.0); HEMOGLOBIN 13.9 g/dl (14.0-18.0); IMMATURE GRANULOCYTES 0.1 % (0.0-5.0); LYMPH% 6.9 % (15-41); MEAN CELL VOLUME 96.6 fL CALC (80.0-100.0); MEAN CORPUSCULAR HGB 31.5 pG CALC (26.0-32.0); MEAN CORPUSCULAR HGB CONC 32.6 g/dL CAL (32.0-36.0); MONO% 12.8 % (2-13); NEUT# 5.65 thou/uL (1.82-7.42); NEUT% 77.5 % (42-76); RED BLOOD COUNT 4.41 mill/uL (4.70-6.10); RED CELL DISTRI WIDTH 13.3 % (11.5-15.5)
[2022-10-23 03:40] LABS: ALBUMIN 4.3 g/dL (3.2-5.0); BILIRUBIN, TOTAL 1.1 mg/dL (0.2-1.3); CREATININE 1.5 mg/dL (0.7-1.3); MAGNESIUM 1.7 mg/dL (1.6-2.3); POTASSIUM 3.5 mmol/l (3.5-5.1); TOTAL PROTEIN 7.2 g/dL (6.3-8.2)
[2022-10-23 04:10] LABS: TSH, 3RD GENERATION 2.29 uIU/mL (0.47 - 4.68)
[2022-10-23 04:15] LABS: URINE BILIRUBIN - DIPSTICK NEGATIVE (NEGATIVE); URINE BLOOD DIPSTICK TRACE-INTACT (NEGATIVE); URINE COLOR YELLOW; URINE GLUCOSE - DIPSTICK NEGATIVE (NEGATIVE); URINE KETONE NEGATIVE (NEGATIVE); URINE LEUK ESTERASE TRACE (NEGATIVE); URINE PROTEIN - DIPSTICK NEGATIVE (NEG-TRACE); URINE UROBILINOGEN - DIPSTICK 0.2 E.U./dL (0.2)
[2022-10-23 04:16] LABS: URINE NITRITE - DIPSTICK NEGATIVE (Negative)
== END 2022-10-23 08:50 | disposition home or self-care (01) ==
LOC: ED 02:47
PROVIDERS: Family Medicine
DX: K59.00 Constipation, unspecified (principal); R07.9 Chest pain, unspecified; I10 Essential (primary) hypertension; F03.90 Unspecified dementia, unspecified severity, without behavioral disturbance, psychotic disturbance, mood disturbance, and anxiety; I25.2 Old myocardial infarction; Z95.5 Presence of coronary angioplasty implant and graft; Z95.1 Presence of aortocoronary bypass graft; Z95.0 Presence of cardiac pacemaker
CPT/HCPCS: Q9967

== ENCOUNTER 2022-11-06 05:21 | Emergency (ER) | payer MEDICARE ==
[2022-11-06] VITALS (13 sets, daily range): BP systolic 101–132; BP diastolic 58–84
[~2022-11-06] VITALS: Ht 182.9 cm; Wt 88.4 kg
[2022-11-06 06:10] LABS: BASO% 0.4 % (0-3); EOS% 2.2 % (0-8); HEMATOCRIT 41.7 % (39.0-50.0); HEMOGLOBIN 13.6 g/dl (14.0-18.0); IMMATURE GRANULOCYTES 0.4 % (0.0-5.0); LYMPH% 12.6 % (15-41); MEAN CELL VOLUME 94.6 fL CALC (80.0-100.0); MEAN CORPUSCULAR HGB 30.8 pG CALC (26.0-32.0); MEAN CORPUSCULAR HGB CONC 32.6 g/dL CAL (32.0-36.0); NEUT# 5.53 thou/uL (1.82-7.42); NEUT% 72.4 % (42-76); RED BLOOD COUNT 4.41 mill/uL (4.70-6.10); RED CELL DISTRI WIDTH 12.9 % (11.5-15.5)
[2022-11-06 06:14] LABS: ALBUMIN 3.9 g/dL (3.2-5.0); BILIRUBIN, TOTAL 0.8 mg/dL (0.2-1.3); CREATININE 1.6 mg/dL (0.7-1.3); POTASSIUM 3.6 mmol/l (3.5-5.1); TOTAL PROTEIN 7.1 g/dL (6.3-8.2)
[2022-11-06 06:26] LABS: D-DIMER 2.13 mg/L (0.19-0.60)
== END 2022-11-06 10:32 | disposition short-term general hospital (02) ==
LOC: ED 05:21
PROVIDERS: Family Medicine
DX: I20.0 Unstable angina (principal); I10 Essential (primary) hypertension; I25.2 Old myocardial infarction; Z95.1 Presence of aortocoronary bypass graft; Z95.5 Presence of coronary angioplasty implant and graft; Z95.0 Presence of cardiac pacemaker
CPT/HCPCS: J1644; J1650; Q9967

== ENCOUNTER 2022-12-18 08:21 | Emergency (ER) | payer MEDICARE ==
[2022-12-18] VITALS (16 sets, daily range): BP systolic 83–126; BP diastolic 47–85
[~2022-12-18] VITALS: Ht 182.9 cm; Wt 97.0 kg
[2022-12-18 08:49] LABS: BASO% 0.3 % (0-3); EOS% 3.7 % (0-8); HEMATOCRIT 36.4 % (39.0-50.0); HEMOGLOBIN 11.9 g/dl (14.0-18.0); IMMATURE GRANULOCYTES 0.3 % (0.0-5.0); LYMPH% 14.1 % (15-41); MEAN CELL VOLUME 98.9 fL CALC (80.0-100.0); MEAN CORPUSCULAR HGB 32.3 pG CALC (26.0-32.0); MEAN CORPUSCULAR HGB CONC 32.7 g/dL CAL (32.0-36.0); MONO% 8.5 % (2-13); NEUT# 4.97 thou/uL (1.82-7.42); NEUT% 73.1 % (42-76); RED BLOOD COUNT 3.68 mill/uL (4.70-6.10); RED CELL DISTRI WIDTH 14.8 % (11.5-15.5)
[2022-12-18 09:01] LABS: ALBUMIN 3.9 g/dL (3.2-5.0); CREATININE 1.6 mg/dL (0.7-1.3); TOTAL PROTEIN 6.7 g/dL (6.3-8.2)
[2022-12-18 09:05] LABS: BILIRUBIN, TOTAL 1.3 mg/dL (0.2-1.3); POTASSIUM 4.5 mmol/l (3.5-5.1)
[2022-12-18 09:06] LABS: D-DIMER 1.67 mg/L (0.19-0.60)
[2022-12-18 09:11] LABS: INTERNATIONAL NORMALIZED RATIO 1.2 RATIO (0.7-1.3)
== END 2022-12-18 15:30 | disposition short-term general hospital (02) ==
LOC: ED 08:21
PROVIDERS: Family Medicine
DX: I25.110 Atherosclerotic heart disease of native coronary artery with unstable angina pectoris (principal); I10 Essential (primary) hypertension; I25.2 Old myocardial infarction; Z95.1 Presence of aortocoronary bypass graft; Z95.5 Presence of coronary angioplasty implant and graft; Z95.0 Presence of cardiac pacemaker
CPT/HCPCS: P9047

== ENCOUNTER 2023-04-20 04:55 | Emergency (ER) | payer MEDICARE ==
[~2023-04-20] VITALS: Ht 182.9 cm; Wt 70.0 kg
[~2023-04-20 04:55] MED LIST changes: +CIPROFLOXACN500 MG PO
[2023-04-20] MEDS ORDERED: CORDARONE/200 MG/TAB PO (05:08)
[2023-04-20] MEDS ORDERED: KEFLEX500 MG PO (05:10)
[2023-04-20] MEDS ORDERED: LEXAPRO20 MG PO (05:11)
[2023-04-20] MEDS ORDERED: LASIX 40 MG TAB40 MG PO (05:12)
[2023-04-20] MEDS ORDERED: FINASTERIDE5 MG PO (05:12)
[2023-04-20] MEDS ORDERED: TOPROL XL50 MG PO (05:13)
[2023-04-20] MEDS ORDERED: MEMANTINE HYDRO10 MG PO (05:13)
[2023-04-20] MEDS ORDERED: PROTONIX40 M2 PO (05:14)
[2023-04-20] MEDS ORDERED: POTASSIUM CHLO10 MEQ PO (05:15)
[2023-04-20 05:16] VITALS: BP 126/58
[2023-04-20] MEDS ORDERED: SILODOSIN8 MG PO (05:17)
[2023-04-20 05:30] VITALS: BP 119/57
[2023-04-20 05:45] VITALS: BP 114/53
[2023-04-20 06:01] VITALS: BP 127/63
[2023-04-20 06:20] VITALS: BP 127/63
== END 2023-04-20 06:20 | disposition home or self-care (01) ==
LOC: ED 04:55
DX: T81.31XA Disruption of external operation (surgical) wound, not elsewhere classified, initial encounter (principal); L76.32 Postprocedural hematoma of skin and subcutaneous tissue following other procedure; I12.9 Hypertensive chronic kidney disease with stage 1 through stage 4 chronic kidney disease, or unspecified chronic kidney disease; N18.9 Chronic kidney disease, unspecified; I25.2 Old myocardial infarction; J44.9 Chronic obstructive pulmonary disease, unspecified; G89.4 Chronic pain syndrome; Y83.1 Surgical operation with implant of artificial internal device as the cause of abnormal reaction of the patient, or of later complication, without mention of misadventure at the time of the procedure; Z95.0 Presence of cardiac pacemaker; Z95.818 Presence of other cardiac implants and grafts; Z95.1 Presence of aortocoronary bypass graft

== ENCOUNTER 2023-05-13 20:54 | Emergency (ER) | payer MEDICARE ==
[~2023-05-13] VITALS: Ht 182.9 cm; Wt 84.0 kg
[~2023-05-13 20:54] MED LIST changes: +CORDARONE/200 MG/TAB PO; +FINASTERIDE5 MG PO; +KEFLEX500 MG PO; +LASIX 40 MG TAB40 MG PO; +POTASSIUM CHLO10 MEQ PO; +SILODOSIN8 MG PO; +TOPROL XL50 MG PO
[2023-05-13 21:02] VITALS: BP 104/52
[2023-05-13 21:16] VITALS: BP 103/57
[2023-05-13 21:35] LABS: BASO% 0.2 % (0-3); EOS% 2.5 % (0-8); HEMATOCRIT 30.1 % (39.0-50.0); HEMOGLOBIN 9.8 g/dl (14.0-18.0); IMMATURE GRANULOCYTES 0.2 % (0.0-5.0); MEAN CELL VOLUME 97.4 fL CALC (80.0-100.0); MEAN CORPUSCULAR HGB 31.7 pG CALC (26.0-32.0); MEAN CORPUSCULAR HGB CONC 32.6 g/dL CAL (32.0-36.0); NEUT# 3.53 thou/uL (1.82-7.42); NEUT% 69.1 % (42-76); RED BLOOD COUNT 3.09 mill/uL (4.70-6.10); RED CELL DISTRI WIDTH 15.7 % (11.5-15.5)
[2023-05-13] MEDS ORDERED: TYLENOL500 MG PO (21:35)
[2023-05-13] MEDS ORDERED: ATORVASTATIN CA20 MG PO (21:37)
[2023-05-13] MEDS ORDERED: LINZESS72 MCG PO (21:41)
[2023-05-13 21:46] LABS: BILIRUBIN, TOTAL 0.6 mg/dL (0.2-1.3); CREATININE 1.6 mg/dL (0.7-1.3); POTASSIUM 3.5 mmol/l (3.5-5.1); TOTAL PROTEIN 5.6 g/dL (6.3-8.2)
[2023-05-13 21:47] LABS: ALBUMIN 3.5 g/dL (3.2-5.0)
[2023-05-13 22:00] VITALS: BP 113/68
[2023-05-13] MEDS ORDERED: PROTONIX40 M2 PO (22:14)
[2023-05-13 22:30] VITALS: BP 113/68
== END 2023-05-13 22:30 | disposition home or self-care (01) ==
LOC: ED 20:54
PROVIDERS: Family Medicine
DX: K29.70 Gastritis, unspecified, without bleeding (principal); I12.9 Hypertensive chronic kidney disease with stage 1 through stage 4 chronic kidney disease, or unspecified chronic kidney disease; N18.9 Chronic kidney disease, unspecified; J44.9 Chronic obstructive pulmonary disease, unspecified; G89.4 Chronic pain syndrome; I25.2 Old myocardial infarction; Z95.5 Presence of coronary angioplasty implant and graft; Z95.0 Presence of cardiac pacemaker; Z95.818 Presence of other cardiac implants and grafts; Z95.1 Presence of aortocoronary bypass graft
CPT/HCPCS: S0164

== ENCOUNTER 2023-05-19 14:49 | Emergency (ER) | payer MEDICARE ==
[~2023-05-19] VITALS: Ht 182.9 cm; Wt 90.0 kg
[~2023-05-19 14:49] MED LIST changes: +ATORVASTATIN CA20 MG PO; +LINZESS72 MCG PO
[2023-05-19 16:42] VITALS: BP 120/60
[2023-05-19 16:45] VITALS: BP 118/55
[2023-05-19 17:01] VITALS: BP 103/54
[2023-05-19 17:04] VITALS: BP 103/54
== END 2023-05-19 17:20 | disposition home or self-care (01) ==
LOC: ED 14:49
PROC: 0HQ0XZZ Repair Scalp Skin, External Approach (ICD-10-PCS; principal; 2023-05-19)
DX: S01.01XA Laceration without foreign body of scalp, initial encounter (principal); I12.9 Hypertensive chronic kidney disease with stage 1 through stage 4 chronic kidney disease, or unspecified chronic kidney disease; N18.9 Chronic kidney disease, unspecified; F03.90 Unspecified dementia, unspecified severity, without behavioral disturbance, psychotic disturbance, mood disturbance, and anxiety; J44.9 Chronic obstructive pulmonary disease, unspecified; I25.2 Old myocardial infarction; G89.4 Chronic pain syndrome; W01.0XXA Fall on same level from slipping, tripping and stumbling without subsequent striking against object, initial encounter; Y92.512 Supermarket, store or market as the place of occurrence of the external cause; Z95.1 Presence of aortocoronary bypass graft; Z95.0 Presence of cardiac pacemaker; Z95.818 Presence of other cardiac implants and grafts